=== PATIENT | female | born 1965 | race Asian ===

== ENCOUNTER 2022-01-08 15:50 | Emergency (ER) | payer BC ==
[~2022-01-08] VITALS: Ht 172.7 cm; Wt 97.1 kg
[2022-01-08 17:54] VITALS: BP 123/57; TEMP 98.2
== END 2022-01-08 17:54 | disposition home or self-care (01) ==
LOC: ED 15:50
DX: T83.192A Other mechanical complication of indwelling ureteral stent, initial encounter (principal); Y84.6 Urinary catheterization as the cause of abnormal reaction of the patient, or of later complication, without mention of misadventure at the time of the procedure; Y92.89 Other specified places as the place of occurrence of the external cause
CPT/HCPCS: 99283